=== PATIENT | female | born 1945 | race American Indian/Alaskan Native ===

== ENCOUNTER 2019-09-24 16:30 | Emergency (ER) | payer OTHER ==
--- NOTE | 2019-09-24 19:20 | Event Note ---
ED Screening Note Date of service: 09/24/19 Time: 19:18 ED Screening Note: 74 y o female presents s/p fall with left hand pain x today This initial assessment/diagnostic orders/clinical plan/treatment(s) is/are subject to change based on patients health status, clinical progression and re-assessment by fellow clinical providers in the ED. Further treatment and workup at subsequent clinical providers discretion. Patient/guardian urged not to elope from the ED as their condition may be serious if not clinically assessed and managed. Initial orders include: xr acc eval
--- NOTE | 2019-09-24 20:40 | XRay Report ---
XR wrist 2V LT INDICATION / CLINICAL INFORMATION: Left wrist pain after fall. COMPARISON: None available. FINDINGS: BONES/JOINT(S): No acute fracture or subluxation. No significant degenerative changes. SOFT TISSUES: No significant abnormality. ADDITIONAL FINDINGS: None. Signer Name: Semaj Thacker MD Signed: 09/24/2019 8:35 PM Workstation Name: [id number]
--- NOTE | 2019-09-24 21:25 | Emergency Department Report ---
Upper Extremity - [facility] Chief Complaint: Fall Stated Complaint: FALL Time Seen by Provider: 09/24/19 21:00 Upper Extremity: Left Hand Occurred When: Today Mechanism: Fall Severity: severe Symptoms: Yes Pain with Movement, Yes Deformity, Yes Swelling, No Numbness, No Weakness, No Bruising/Ecchymosis, No Laceration or Abrasion Other History: Patient is a 74-year-old female that presents emergency room with complaints of left hand pain. She also complains of left hand swelling. Patient states the pain is a 5 out of 10 and is better with rest and worse with movement and palpation. Patient states the pain is tolerable. Patient states she slipped this morning and hit her hand on the ground in her carport. Patient states deny her head. Patient denies LOC. Patient denies other injuries. Patient denies any other physical complaints or pain. ED Review of Systems ROS: Stated complaint: FALL Other details as noted in HPI ED Past Medical Hx - Past Medical History Previous Medical History?: Yes Hx Hypertension: Yes Hx Diabetes: Yes - Surgical History Past Surgical History?: Yes Additional Surgical History: bilateral knee replacements - Social History Smoking Status: Never Smoker - Medications Home Medications: Home Medications Medication Instructions Recorded Confirmed Last Taken Type Acetaminophen/Codeine [Tylenol 1 tab PO Q6H PRN #10 tab 09/24/19 Unknown Rx /Codeine # 3 tab] Upper Extremity Exam - Exam General: Vital signs noted. No distress. Alert and acting appropriately. Head and Torso: No HEENT Abnormality, No Neck Tenderness, No Chest/Lungs Abnormality, No Abdominal Tenderness, No Back Tenderness Shoulder Exam: Yes Normal Range of Motion in Shoulder, No Shoulder Tenderness, No Clavicle Tenderness, No Shoulder Deformity, No AC Joint Tenderness Arm Exam: No Arm/Humerus Tenderness, No Arm Deformity Elbow: No Elbow Tenderness, No Normal Range of Motion in Elbow, No Elbow Deformity Forearm: No Forearm Tenderness, No Forearm Deformity, No Pain with Pronation, No Pain with Supination Wrist: Yes Normal ROM in Wrist, No Wrist Tenderness, No Wrist Deformity, No Snuffbox Tenderness, No Pain with Axial Thumb Compression Hand: Yes Hand Tenderness (left hand swelling), Yes Normal ROM in Digit(s), No Digit Tenderness, No Digit(s) Deformity, No Tendon Dysfunction CMS Exam: No Broken Skin, No Normal Distal Pulses, No Normal Capillary Refill, No Normal Distal Sensation ED Course Vital Signs 09/24/19 18:01 Temperature 98.3 F Pulse Rate 98 H Respiratory 18 Rate Blood Pressure 214/96 O2 Sat by Pulse 100 Oximetry - Reevaluation(s) Reevaluation #1: I discussed all results with patient. I discussed plan of care with patient. Patient agrees with plan of care. Patient is stable for discharge. Patient will be discharged home. Patient given discharge instructions. Patient voiced understanding of discharge instructions. 09/24/19 21:48 ED Medical Decision Making - Radiology Data Radiology results: report reviewed, image reviewed interpreted by me: No acute fractures on wrist or hand x-ray. - Medical Decision Making pt is a 74-year-old female that presents emergency room with right hand pain after a fall. Patient's x-rays negative for acute fracture. Patient found to have swelling of the dorsal aspect of her left hand. Patient's finding consistent with a hand contusion. Patient discharged home. Patient given discharge instructions. Patient stable for discharge. Patient given pain medications. - Differential Diagnosis sprain, strain, fracture, contusion. Critical care attestation.: If time is entered above; I have spent that time in minutes in the direct care of this critically ill patient, excluding procedure time. ED Disposition Clinical Impression: Hand pain, left Hand swelling Qualifiers: Laterality: left Qualified Code(s): M79.89 - Other specified soft tissue disorders Hand contusion Qualifiers: Encounter type: initial encounter Laterality: left Qualified Code(s): S60.222A - Contusion of left hand, initial encounter Disposition: - TO HOME OR SELFCARE Is pt being admited?: No Does the pt Need Aspirin: No Condition: Stable Instructions: Contusion in Adults (ED), Hand Sprain (ED) Additional Instructions: Patient to follow-up with primary care in 2-3 days. Patient to follow-up with an orthopedist in 2-3 days. Patient to return to ER if condition worsens. Patient to rest. Patient to increase water. Patient to take meds as directed. Patient's take Tylenol when necessary for pain. Prescriptions: Acetaminophen/Codeine [Tylenol /Codeine # 3 tab] 1 tab PO Q6H PRN #10 tab PRN Reason: pain Referrals: BERONICA VAZQUEZ MD [Staff Physician] - 2-3 Days Time of Disposition: 21:48
--- NOTE | 2019-09-24 21:40 | XRay Report ---
XR hand 3+V LT INDICATION / CLINICAL INFORMATION: hand pain.. COMPARISON: None available. FINDINGS: BONES/JOINT(S): No acute fracture or subluxation. 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 SOFT TISSUES: No significant abnormality. ADDITIONAL FINDINGS: None. Signer Name: Semaj Thacker MD Signed: 09/24/2019 9:36 PM Workstation Name: [id number]
[2019-09-24 22:25] VITALS: BP 181/90
== END 2019-09-24 22:25 | disposition home or self-care (01) ==
LOC: ED 16:30
DX: S60.222A Contusion of left hand, initial encounter (principal); M79.89 Other specified soft tissue disorders; I10 Essential (primary) hypertension; E11.9 Type 2 diabetes mellitus without complications; Z96.653 Presence of artificial knee joint, bilateral; W01.198A Fall on same level from slipping, tripping and stumbling with subsequent striking against other object, initial encounter; Y93.89 Activity, other specified; Y92.89 Other specified places as the place of occurrence of the external cause; Y99.8 Other external cause status
CPT/HCPCS: 99283